=== PATIENT | male | born 1975 | race Caucasian/White ===

== ENCOUNTER 2017-03-25 14:35 | Emergency (ER) | payer BC ==
[2017-03-25 14:45] VITALS: TEMP 98.2
[2017-03-25] MEDS ORDERED: OXYCODONE/APAP 5/325 TAB PO ONE (15:06)
[2017-03-25] MEDS ORDERED: ONDANSETRON DISINTEGRATING 4 MG TAB PO ONE (15:06)
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
[2017-03-25 16:23] VITALS: BP 121/73; PULSE 62; RESP 16; O2SAT 95
== END 2017-03-25 16:21 | disposition home or self-care (01) ==
DX: S42.022A Displaced fracture of shaft of left clavicle, initial encounter for closed fracture (principal); S62.347A Nondisplaced fracture of base of fifth metacarpal bone, left hand, initial encounter for closed fracture; V18.0XXA Pedal cycle driver injured in noncollision transport accident in nontraffic accident, initial encounter; Y92.410 Unspecified street and highway as the place of occurrence of the external cause; Y99.8 Other external cause status; Y93.55 Activity, bike riding